=== PATIENT | female | born 1950 | race American Indian/Alaskan Native ===

== ENCOUNTER 2017-11-06 16:29 | Inpatient (IN) | payer MEDICARE ==
[2017-11-06 17:03] VITALS: BMI 32.1
--- NOTE | 2017-11-06 18:00 | CP.PCM.HP ---
History of Present Illness - History of Present Illness History of Present Illness: 67 yo female with history of DM2, HTN, CAD and OA had left TKR on 11/02/2017 at [facility] after failing conservative management. She was transferred to [facility] for PT in TCU. Present on Admission - Present on Admission Any Indicators Present on Admission: No History of DVT/PE: No History of Uncontrolled Diabetes: No Urinary Catheter: No Decubitus Ulcer Present: No Review of Systems - Review of Systems All systems: reviewed and no additional remarkable complaints except (aside from those mentioned above, 14 point system review were negative by me) Past Patient History - Tetanus Immunizations Tetanus Immunization: Unknown - Past Medical History & Family History Past Medical History?: Yes - Past Social History Smoking Status: Current Some Days Smoker Alcohol: None Drugs: Denies Home Situation {Lives}: With Family - CARDIAC Hx Cardiac Disorders: Yes (CAD, CABGx2 2013) Hx Hypercholesterolemia: Yes Hx Hypertension: Yes - PULMONARY Hx Respiratory Disorders: No - NEUROLOGICAL Hx Neurological Disorder: No - HEENT Hx HEENT Problems: Yes Hx Cataracts: Yes - RENAL Hx Chronic Kidney Disease: No - ENDOCRINE/METABOLIC Hx Diabetes Mellitus Type 2: Yes - HEMATOLOGICAL/ONCOLOGICAL Hx Blood Disorders: No - INTEGUMENTARY Hx Dermatological Problems: No - MUSCULOSKELETAL/RHEUMATOLOGICAL Hx Arthritis: Yes Hx Degenerative Joint Disease: Yes Hx Osteoarthritis: Yes - GASTROINTESTINAL Hx Gastrointestinal Disorders: Yes Hx Hemorrhoids: Yes - GENITOURINARY/GYNECOLOGICAL Hx Genitourinary Disorders: No - PSYCHIATRIC Hx Psychophysiologic Disorder: No Hx Substance Use: No - SURGICAL HISTORY Hx Surgeries: Yes Hx Cataract Extraction: Yes (BILAT.) Hx Coronary Artery Bypass Graft: Yes (X2) Hx Open Heart Surgery: Yes Hx Orthopedic Surgery: Yes (right TKR (05/11/2017)) Other/Comment: HX: LEFT KNEE CYST REMOVED. HX: RIGHT THIGH BOIL I & D - ANESTHESIA Hx Anesthesia: Yes Hx Anesthesia Reactions: No Hx Malignant Hyperthermia: No Meds Allergies/Adverse Reactions: Allergies Allergy/AdvReac Type Severity Reaction Status Date / Time No Known Allergies Allergy Verified 11/06/17 17:06 Physical Exam - Constitutional Appears: No Acute Distress - Head Exam Head Exam: ATRAUMATIC - Eye Exam Eye Exam: absent: Scleral icterus - ENT Exam ENT Exam: Mucous Membranes Moist - Neck Exam Neck exam: Negative for: Meningismus - Respiratory Exam Respiratory Exam: absent: Rales, Rhonchi, Wheezes, Respiratory Distress - Cardiovascular Exam Cardiovascular Exam: REGULAR RHYTHM, +S1, +S2 - GI/Abdominal Exam GI & Abdominal Exam: Soft. absent: Tenderness - Rectal Exam Rectal Exam: Deferred - Extremities Exam Extremities exam: Negative for: full ROM (post left TKR) - Neurological Exam Neurological exam: Alert, Oriented x3 - Psychiatric Exam Psychiatric exam: Normal Affect - Skin Skin Exam: Dry, Intact Assessment & Plan - Assessment and Plan (Free Text) Assessment: 67 yo female with history of DM2, HTN, CAD and OA had left TKR on 11/02/2017 at [facility] after failing conservative management. She was transferred to [facility] for PT in TCU. 1. Post Left TKR 4th POD refer to PT/OT for management 2. DM2 BS relatively controlled continue Levemir 15 units SC HS continue Metformin 1000mg PO BID 3. HTN BP stable continue Metoprolol 4. CAD continue ASA, Metoprolol and statin patient need Plavix or ASA unless there is some contra indication 5. DVT prophylaxis Lovenox 40mg SC daily
[2017-11-06] MEDS ORDERED: Oxycodone/Acetaminophen 5/325 mg Tab PO PRN (18:27)
[2017-11-06] MEDS: Insulin Detemir 100 Units/ml Inj SC SCH (21:46)
[2017-11-07 06:47] LABS: BASO % 0.3 % (0.0-2.0); EOS # 0.3 K/uL (0.0-0.7); HEMOGLOBIN 9.1 g/dL (12.0-16.0); LYMPH # 2.8 K/uL (1.0-4.3); LYMPH % 35.9 % (20.0-40.0); MEAN CELL VOLUME 96.3 fl (81.0-99.0); MEAN CORPUSCULAR HGB CONC 33.2 g/dL (33.0-37.0); MEAN PLATELET VOLUME 10.4 fl (7.2-11.7); MONO # 1.1 K/uL (0.0-0.8); MONO % 14.5 % (0.0-10.0); NEUT # 3.5 K/uL (1.8-7.0); NEUT % 45.3 % (50.0-75.0); NRBC % 0.1 % (0.0-0.0); RBC 2.83 Mil/uL (3.80-5.20); RED CELL DISTRIBUTION WIDTH 13.2 % (11.5-14.5); WHITE BLOOD COUNT 7.7 K/uL (4.8-10.8)
[2017-11-07 07:09] LABS: BLOOD UREA NITROGEN 11 mg/dl (7-17); CALCIUM 9.3 mg/dL (8.4-10.2); GFR AFRICAN-AMERICAN > 60; GFR NON-AFRICAN AMERICAN > 60
[2017-11-07] MEDS: Multivitamin With Minerals Tab PO SCH (08:08)
[2017-11-07] MEDS: Enoxaparin 40 mg Syringe SC SCH (08:09)
[2017-11-07] MEDS: Pantoprazole 40 mg EC Tab PO SCH (08:09)
[2017-11-07] MEDS ORDERED: Enoxaparin 40 mg Syringe SC SCH (09:00)
[2017-11-07] MEDS ORDERED: Metoprolol Succinate 50 mg XL Tab PO SCH (09:00)
--- NOTE | 2017-11-07 12:49 | CP.PCM.CON ---
History of Present Illness - History of Present Illness History of Present Illness: 67 year old patinet with gait difficulty, with left total knee replacement, with history of DM, HTN OA admitted to TCU Review of Systems - Musculoskeletal Musculoskeletal: Abnormal Gait, Limited Range of Motion, Muscle Weakness Past Patient History - Tetanus Immunizations Tetanus Immunization: Unknown - Past Medical History & Family History Past Medical History?: Yes - Past Social History Smoking Status: Current Some Days Smoker Alcohol: None Drugs: Denies Home Situation {Lives}: With Family - CARDIAC Hx Cardiac Disorders: Yes (CAD, CABGx2 2013) Hx Hypercholesterolemia: Yes Hx Hypertension: Yes - PULMONARY Hx Respiratory Disorders: No - NEUROLOGICAL Hx Neurological Disorder: No - HEENT Hx HEENT Problems: Yes Hx Cataracts: Yes - RENAL Hx Chronic Kidney Disease: No - ENDOCRINE/METABOLIC Hx Diabetes Mellitus Type 2: Yes - HEMATOLOGICAL/ONCOLOGICAL Hx Blood Disorders: No - INTEGUMENTARY Hx Dermatological Problems: No - MUSCULOSKELETAL/RHEUMATOLOGICAL Hx Arthritis: Yes Hx Degenerative Joint Disease: Yes Hx Osteoarthritis: Yes - GASTROINTESTINAL Hx Gastrointestinal Disorders: Yes Hx Hemorrhoids: Yes - GENITOURINARY/GYNECOLOGICAL Hx Genitourinary Disorders: No - PSYCHIATRIC Hx Psychophysiologic Disorder: No Hx Substance Use: No - SURGICAL HISTORY Hx Surgeries: Yes Hx Cataract Extraction: Yes (BILAT.) Hx Coronary Artery Bypass Graft: Yes (X2) Hx Open Heart Surgery: Yes Hx Orthopedic Surgery: Yes (right TKR (05/11/2017)) Other/Comment: HX: LEFT KNEE CYST REMOVED. HX: RIGHT THIGH BOIL I & D - ANESTHESIA Hx Anesthesia: Yes Hx Anesthesia Reactions: No Hx Malignant Hyperthermia: No Meds Allergies/Adverse Reactions: Allergies Allergy/AdvReac Type Severity Reaction Status Date / Time No Known Allergies Allergy Verified 11/06/17 17:06 - Medications Medications: Current Medications Acetaminophen (Tylenol 325mg Tab) 650 mg PO Q4 PRN PRN Reason: Fever 101 degrees fahrenheit Aspirin (Aspirin Chewable) 81 mg PO DAILY [facility] Last Admin: 11/07/17 08:08 Dose: 81 mg Atorvastatin Calcium (Lipitor) 20 mg PO HS [facility] Docusate Sodium (Colace) 100 mg PO BID [facility] Last Admin: 11/07/17 08:07 Dose: 100 mg Enoxaparin Sodium (Lovenox) 40 mg SC DAILY [facility] PRN Reason: Protocol Last Admin: 11/07/17 08:09 Dose: 40 mg Insulin Detemir (Levemir) 15 units SC HS [facility] Last Admin: 11/06/17 21:46 Dose: 15 u Ketorolac Tromethamine (Toradol) 30 mg IM Q6 PRN PRN Reason: Pain, severe (8-10) Last Admin: 11/07/17 09:03 Dose: 30 mg Lactulose (Enulose) 20 gm PO BID PRN PRN Reason: Constipation Metformin HCl (Glucophage) 1,000 mg PO BID [facility] Last Admin: 11/07/17 08:08 Dose: 1,000 mg Metoprolol Succinate (Toprol Xl) 50 mg PO BID@0900,2100 [facility] Last Admin: 11/07/17 08:08 Dose: 50 mg Multivitamins/Minerals (Therapeutic-M Tab) 1 tab PO DAILY [facility] Last Admin: 11/07/17 08:08 Dose: 1 tab Pantoprazole Sodium (Protonix Ec Tab) 40 mg PO DAILY [facility] Last Admin: 11/07/17 08:09 Dose: 40 mg Tramadol HCl (Ultram) 50 mg PO Q4 PRN PRN Reason: Pain, moderate (4-7) Last Admin: 11/06/17 20:19 Dose: 50 mg Physical Exam - Head Exam Head Exam: ATRAUMATIC, NORMAL INSPECTION, NORMOCEPHALIC - Eye Exam Eye Exam: EOMI, Normal appearance, PERRL - ENT Exam ENT Exam: Mucous Membranes Moist, Normal Exam - Neck Exam Neck exam: Positive for: Normal Inspection - Respiratory Exam Respiratory Exam: Clear to Auscultation Bilateral, NORMAL BREATHING PATTERN - Cardiovascular Exam Cardiovascular Exam: REGULAR RHYTHM - Rectal Exam Rectal Exam: NORMAL INSPECTION - Exam External exam: NORMAL EXTERNAL EXAM - Extremities Exam Extremities exam: Positive for: normal inspection Additional comments: left leg weakness - Back Exam Back exam: NORMAL INSPECTION - Neurological Exam Neurological exam: Alert, CN II-XII Intact - Psychiatric Exam Psychiatric exam: Normal Affect, Normal Mood - Skin Skin Exam: Dry, Intact Results - Vital Signs Recent Vital Signs: Last Vital Signs Temp 98.2 F 11/07/17 08:45 Pulse 91 H 11/07/17 08:45 Resp 20 11/07/17 08:45 BP 134/74 11/07/17 08:45 Pulse Ox 96 11/07/17 08:45 - Labs Result Diagrams: 11/07/17 05:50 11/07/17 05:50 Labs: Laboratory Results - last 24 hr 11/06/17 11/07/17 11/07/17 21:14 05:48 05:50 WBC 7.7 RBC 2.83 L Hgb 9.1 L Hct 27.3 L MCV 96.3 MCH 32.0 H MCHC 33.2 RDW 13.2 Plt Count 190 MPV 10.4 Neut % (Auto) 45.3 L Lymph % (Auto) 35.9 Osborne % (Auto) 14.5 H Eos % (Auto) 4.0 Baso % (Auto) 0.3 Neut # (Auto) 3.5 Lymph # (Auto) 2.8 Osborne # (Auto) 1.1 H Eos # (Auto) 0.3 Baso # (Auto) 0.0 Sodium Potassium Chloride Carbon Dioxide Anion Gap BUN Creatinine Est GFR ( Amer) Est GFR (Non-Af Amer) POC Glucose (mg/dL) 186 H 134 H Random Glucose Calcium 11/07/17 11/07/17 05:50 10:56 WBC RBC Hgb Hct MCV MCH MCHC RDW Plt Count MPV Neut % (Auto) Lymph % (Auto) Osborne % (Auto) Eos % (Auto) Baso % (Auto) Neut # (Auto) Lymph # (Auto) Osborne # (Auto) Eos # (Auto) Baso # (Auto) Sodium 138 Potassium 3.8 Chloride 94 L Carbon Dioxide 29 Anion Gap 19 BUN 11 Creatinine 0.6 L Est GFR ( Amer) > 60 Est GFR (Non-Af Amer) > 60 POC Glucose (mg/dL) 164 H Random Glucose 128 H Calcium 9.3 Assessment & Plan (1) CAD (coronary artery disease) Status: Acute (2) HTN (hypertension) Status: Acute (3) Primary osteoarthritis of left knee Assessment and Plan: left knee replacement, plan for range of motion, strenghtening, transfers and gait training Status: Acute (4) Primary osteoarthritis of right knee Status: Acute
--- NOTE | 2017-11-07 12:53 | CP.PCM.PN ---
Subjective - Date & Time of Evaluation Date of Evaluation: 11/07/17 Time of Evaluation: 12:00 - Subjective Subjective: no acute complaints of knee pain Objective - Vital Signs/Intake and Output Vital Signs (last 24 hours): Temp Pulse Resp BP Pulse Ox 98.2 F 91 H 20 134/74 96 11/07/17 08:45 11/07/17 08:45 11/07/17 08:45 11/07/17 08:45 11/07/17 08:45 - Medications Medications: Current Medications Acetaminophen (Tylenol 325mg Tab) 650 mg PO Q4 PRN PRN Reason: Fever 101 degrees fahrenheit Aspirin (Aspirin Chewable) 81 mg PO DAILY [facility] Last Admin: 11/07/17 08:08 Dose: 81 mg Atorvastatin Calcium (Lipitor) 20 mg PO HS [facility] Docusate Sodium (Colace) 100 mg PO BID [facility] Last Admin: 11/07/17 08:07 Dose: 100 mg Enoxaparin Sodium (Lovenox) 40 mg SC DAILY [facility] PRN Reason: Protocol Last Admin: 11/07/17 08:09 Dose: 40 mg Insulin Detemir (Levemir) 15 units SC [facility] Last Admin: 11/06/17 21:46 Dose: 15 u Ketorolac Tromethamine (Toradol) 30 mg IM Q6 PRN PRN Reason: Pain, severe (8-10) Last Admin: 11/07/17 09:03 Dose: 30 mg Lactulose (Enulose) 20 gm PO BID PRN PRN Reason: Constipation Metformin HCl (Glucophage) 1,000 mg PO BID [facility] Last Admin: 11/07/17 08:08 Dose: 1,000 mg Metoprolol Succinate (Toprol Xl) 50 mg PO BID@0900,2100 [facility] Last Admin: 11/07/17 08:08 Dose: 50 mg Multivitamins/Minerals (Therapeutic-M Tab) 1 tab PO DAILY [facility] Last Admin: 11/07/17 08:08 Dose: 1 tab Pantoprazole Sodium (Protonix Ec Tab) 40 mg PO DAILY [facility] Last Admin: 11/07/17 08:09 Dose: 40 mg Tramadol HCl (Ultram) 50 mg PO Q4 PRN PRN Reason: Pain, moderate (4-7) Last Admin: 11/06/17 20:19 Dose: 50 mg - Labs Labs: 11/07/17 05:50 11/07/17 05:50 - Head Exam Head Exam: ATRAUMATIC, NORMAL INSPECTION, NORMOCEPHALIC - Eye Exam Eye Exam: EOMI, Normal appearance, PERRL Pupil Exam: NORMAL ACCOMODATION, PERRL - ENT Exam ENT Exam: Mucous Membranes Moist, Normal Exam - Neck Exam Neck Exam: Full ROM, Normal Inspection. absent: Lymphadenopathy - Respiratory Exam Respiratory Exam: Clear to Ausculation Bilateral, NORMAL BREATHING PATTERN - Cardiovascular Exam Cardiovascular Exam: REGULAR RHYTHM, +S1, +S2. absent: Murmur - GI/Abdominal Exam GI & Abdominal Exam: Soft, Normal Bowel Sounds. absent: Tenderness - Rectal Exam Rectal Exam: NORMAL INSPECTION - Exam External exam: NORMAL EXTERNAL EXAM - Extremities Exam Extremities Exam: Full ROM, Normal Capillary Refill, Normal Inspection. absent : Joint Swelling, Pedal Edema - Back Exam Back Exam: NORMAL INSPECTION - Neurological Exam Neurological Exam: Alert, Awake Neuro motor strength exam: Left Upper Extremity: 4, Right Upper Extremity: 4, Left Lower Extremity: 3, Right Lower Extremity: 4 - Psychiatric Exam Psychiatric exam: Normal Affect, Normal Mood - Skin Skin Exam: Dry, Intact Assessment and Plan (1) CAD (coronary artery disease) Status: Acute (2) HTN (hypertension) Status: Acute (3) Primary osteoarthritis of left knee Assessment & Plan: left knee replacement, quad strengthening transfers and gait training monitor skin and pain Status: Acute (4) Primary osteoarthritis of right knee Status: Acute
[2017-11-07] MEDS: Insulin Detemir 100 Units/ml Inj SC SCH (21:30)
[2017-11-08] MEDS: Multivitamin With Minerals Tab PO SCH (08:08)
[2017-11-08] MEDS: Pantoprazole 40 mg EC Tab PO SCH (08:09)
[2017-11-08] MEDS: Metoprolol Succinate 50 mg XL Tab PO SCH (08:09)
[2017-11-08] MEDS: Enoxaparin 40 mg Syringe SC SCH (08:10)
--- NOTE | 2017-11-08 12:43 | CP.PCM.PN ---
Subjective - Date & Time of Evaluation Date of Evaluation: 11/08/17 Time of Evaluation: 10:00 - Subjective Subjective: Patient seen and examined. Tolerating therapy. Pain controlled with Tramadol. Objective - Vital Signs/Intake and Output Vital Signs (last 24 hours): Temp Pulse Resp BP Pulse Ox 97.8 F 89 20 130/74 100 11/08/17 07:58 11/08/17 07:58 11/08/17 07:58 11/08/17 08:09 11/08/17 07:58 - Medications Medications: Current Medications Acetaminophen (Tylenol 325mg Tab) 650 mg PO Q4 PRN PRN Reason: Fever 101 degrees fahrenheit Aspirin (Aspirin Chewable) 81 mg PO DAILY [facility] Last Admin: 11/08/17 08:09 Dose: 81 mg Atorvastatin Calcium (Lipitor) 20 mg PO HS [facility] Last Admin: 11/07/17 21:31 Dose: 20 mg Docusate Sodium (Colace) 100 mg PO BID [facility] Last Admin: 11/08/17 08:08 Dose: 100 mg Enoxaparin Sodium (Lovenox) 40 mg SC DAILY [facility] PRN Reason: Protocol Last Admin: 11/08/17 08:10 Dose: 40 mg Insulin Detemir (Levemir) 15 units SC HS [facility] Last Admin: 11/07/17 21:30 Dose: 15 u Ketorolac Tromethamine (Toradol) 30 mg IM Q6 PRN PRN Reason: Pain, severe (8-10) Last Admin: 11/07/17 09:03 Dose: 30 mg Lactulose (Enulose) 20 gm PO BID PRN PRN Reason: Constipation Metformin HCl (Glucophage) 1,000 mg PO BID [facility] Last Admin: 11/08/17 08:08 Dose: 1,000 mg Metoprolol Succinate (Toprol Xl) 50 mg PO DAILY [facility] Last Admin: 11/08/17 08:09 Dose: 50 mg Multivitamins/Minerals (Therapeutic-M Tab) 1 tab PO DAILY [facility] Last Admin: 11/08/17 08:08 Dose: 1 tab Pantoprazole Sodium (Protonix Ec Tab) 40 mg PO DAILY [facility] Last Admin: 11/08/17 08:09 Dose: 40 mg Tramadol HCl (Ultram) 50 mg PO Q4 PRN PRN Reason: Pain, moderate (4-7) Last Admin: 11/08/17 08:29 Dose: 50 mg - Labs Labs: 11/07/17 05:50 11/07/17 05:50 - Constitutional Appears: No Acute Distress - Head Exam Head Exam: ATRAUMATIC - Eye Exam Eye Exam: absent: Scleral icterus - ENT Exam ENT Exam: Mucous Membranes Moist - Neck Exam Neck Exam: absent: Meningismus - Respiratory Exam Respiratory Exam: absent: Rales, Rhonchi, Wheezes, Respiratory Distress - Cardiovascular Exam Cardiovascular Exam: REGULAR RHYTHM, +S1, +S2 - GI/Abdominal Exam GI & Abdominal Exam: Soft. absent: Tenderness - Rectal Exam Rectal Exam: Deferred - Extremities Exam Extremities Exam: absent: Full ROM (left knee post surgery) - Neurological Exam Neurological Exam: Alert, Oriented x3 - Psychiatric Exam Psychiatric exam: Normal Affect - Skin Skin Exam: Dry, Intact Assessment and Plan - Assessment and Plan (Free Text) Assessment: 67 yo female with history of DM2, HTN, CAD and OA had left TKR on 11/02/2017 at [facility] after failing conservative management. She was transferred to [facility] TCU for therapy. 1. Post Left TKR 6th POD tolerating PT/OT pain manageable with Tramadol 2. DM2 BS relatively controlled accuchek ACHS continue Levemir 15 units SC HS continue Metformin 1000mg PO BID 3. HTN BP stable continue Metoprolol Succinate 50mg PO daily 4. CAD continue ASA, BB and statin 5. DVT prophylaxis Lovenox 40mg SC daily
--- NOTE | 2017-11-08 14:33 | CP.PCM.PN ---
Subjective - Date & Time of Evaluation Date of Evaluation: 11/08/17 Time of Evaluation: 14:31 - Subjective Subjective: Patient was seen and examined OOB to chair comfortable working with PT. She is able to ambulate with walker with no difficulties. She has no complaints of pain. Tolerating diet. No new complaints. Objective - Vital Signs/Intake and Output Vital Signs (last 24 hours): Temp Pulse Resp BP Pulse Ox 97.8 F 89 20 130/74 100 11/08/17 07:58 11/08/17 07:58 11/08/17 07:58 11/08/17 08:09 11/08/17 07:58 - Medications Medications: Current Medications Acetaminophen (Tylenol 325mg Tab) 650 mg PO Q4 PRN PRN Reason: Fever 101 degrees fahrenheit Aspirin (Aspirin Chewable) 81 mg PO DAILY [facility] Last Admin: 11/08/17 08:09 Dose: 81 mg Atorvastatin Calcium (Lipitor) 20 mg PO HS [facility] Last Admin: 11/07/17 21:31 Dose: 20 mg Docusate Sodium (Colace) 100 mg PO BID [facility] Last Admin: 11/08/17 08:08 Dose: 100 mg Enoxaparin Sodium (Lovenox) 40 mg SC DAILY [facility] PRN Reason: Protocol Last Admin: 11/08/17 08:10 Dose: 40 mg Insulin Detemir (Levemir) 15 units SC [facility] Last Admin: 11/07/17 21:30 Dose: 15 u Ketorolac Tromethamine (Toradol) 30 mg IM Q6 PRN PRN Reason: Pain, severe (8-10) Last Admin: 11/07/17 09:03 Dose: 30 mg Lactulose (Enulose) 20 gm PO BID PRN PRN Reason: Constipation Metformin HCl (Glucophage) 1,000 mg PO BID [facility] Last Admin: 11/08/17 08:08 Dose: 1,000 mg Metoprolol Succinate (Toprol Xl) 50 mg PO DAILY [facility] Last Admin: 11/08/17 08:09 Dose: 50 mg Multivitamins/Minerals (Therapeutic-M Tab) 1 tab PO DAILY [facility] Last Admin: 11/08/17 08:08 Dose: 1 tab Pantoprazole Sodium (Protonix Ec Tab) 40 mg PO DAILY [facility] Last Admin: 11/08/17 08:09 Dose: 40 mg Tramadol HCl (Ultram) 50 mg PO Q4 PRN PRN Reason: Pain, moderate (4-7) Last Admin: 11/08/17 08:29 Dose: 50 mg - Labs Labs: 11/07/17 05:50 11/07/17 05:50 - Back Exam Additional comments: L knee: Dressing clean, dry and intact. No tenderness. Minimal swelling. ROM 0- 75. Sensation intact SP/DP/TN. Motor intact EHL/FHL/TA/Gastroc/Q/HS/hip flex. Pedal pulses intact. compartment soft/NT b/l Assessment and Plan (1) Primary osteoarthritis of left knee Assessment & Plan: Patient is POD#7 from left TKA doing well. -PT/OT strength training, ambulation training, stairs training. -CPM as per order -encourage OOB -will d/w attending Status: Acute
[2017-11-08] MEDS: Insulin Detemir 100 Units/ml Inj SC SCH (21:13)
[2017-11-09] MEDS: Metoprolol Succinate 50 mg XL Tab PO SCH (08:58)
[2017-11-09] MEDS: Pantoprazole 40 mg EC Tab PO SCH (08:58)
[2017-11-09] MEDS: Multivitamin With Minerals Tab PO SCH (08:58)
[2017-11-09] MEDS: Enoxaparin 40 mg Syringe SC SCH (08:59)
[2017-11-09] MEDS: Cholecalciferol 1,000 INTLU TAB PO SCH (14:24)
[2017-11-09] MEDS: Insulin Detemir 100 Units/ml Inj SC SCH (21:09)
[2017-11-10] MEDS: Enoxaparin 40 mg Syringe SC SCH (08:35)
[2017-11-10] MEDS: Metoprolol Succinate 50 mg XL Tab PO SCH (08:36)
[2017-11-10] MEDS: Multivitamin With Minerals Tab PO SCH (08:37)
[2017-11-10] MEDS: Cholecalciferol 1,000 INTLU TAB PO SCH (08:37)
[2017-11-10] MEDS: Pantoprazole 40 mg EC Tab PO SCH (08:37)
[2017-11-10] MEDS: Insulin Detemir 100 Units/ml Inj SC SCH (21:12)
[2017-11-11] MEDS: Metoprolol Succinate 50 mg XL Tab PO SCH (08:16)
[2017-11-11] MEDS: Enoxaparin 40 mg Syringe SC SCH (08:17)
[2017-11-11] MEDS: Cholecalciferol 1,000 INTLU TAB PO SCH (08:17)
[2017-11-11] MEDS: Pantoprazole 40 mg EC Tab PO SCH (08:17)
[2017-11-11] MEDS: Multivitamin With Minerals Tab PO SCH (08:17)
[2017-11-11] MEDS: Insulin Detemir 100 Units/ml Inj SC SCH (22:01)
[2017-11-12] MEDS: Metoprolol Succinate 50 mg XL Tab PO SCH (08:17)
[2017-11-12] MEDS: Enoxaparin 40 mg Syringe SC SCH (08:18)
[2017-11-12] MEDS: Cholecalciferol 1,000 INTLU TAB PO SCH (08:18)
[2017-11-12] MEDS: Multivitamin With Minerals Tab PO SCH (08:18)
[2017-11-12] MEDS: Pantoprazole 40 mg EC Tab PO SCH (08:18)
--- NOTE | 2017-11-12 10:23 | CP.PCM.PN ---
Subjective - Date & Time of Evaluation Date of Evaluation: 11/12/17 Time of Evaluation: 10:21 - Subjective Subjective: Patient seen and examined OOB to chair comfortable. No complaints of pain. Returned from today's session of PT without difficulties. No new complaints. Objective - Vital Signs/Intake and Output Vital Signs (last 24 hours): Temp Pulse Resp BP Pulse Ox 97.9 F 75 20 117/70 99 11/12/17 07:38 11/12/17 08:17 11/12/17 07:38 11/12/17 08:17 11/12/17 07:38 - Medications Medications: Current Medications Acetaminophen (Tylenol 325mg Tab) 650 mg PO Q4 PRN PRN Reason: Fever 101 degrees fahrenheit Aspirin (Aspirin Chewable) 81 mg PO DAILY [facility] Last Admin: 11/12/17 08:18 Dose: 81 mg Atorvastatin Calcium (Lipitor) 20 mg PO HS [facility] Last Admin: 11/11/17 22:02 Dose: Not Given Cholecalciferol (Vitamin D) 2,000 intlu PO DAILY [facility] Last Admin: 11/12/17 08:18 Dose: 2,000 intlu Docusate Sodium (Colace) 100 mg PO BID [facility] Last Admin: 11/12/17 08:16 Dose: Not Given Enoxaparin Sodium (Lovenox) 40 mg SC DAILY [facility] PRN Reason: Protocol Last Admin: 11/12/17 08:18 Dose: 40 mg Insulin Detemir (Levemir) 15 units SC [facility] Last Admin: 11/11/17 22:01 Dose: 15 u Ketorolac Tromethamine (Toradol) 30 mg IM Q6 PRN PRN Reason: Pain, severe (8-10) Last Admin: 11/11/17 16:27 Dose: 30 mg Lactulose (Enulose) 20 gm PO BID PRN PRN Reason: Constipation Metformin HCl (Glucophage) 1,000 mg PO BID [facility] Last Admin: 11/12/17 08:18 Dose: 1,000 mg Metoprolol Succinate (Toprol Xl) 50 mg PO DAILY [facility] Last Admin: 11/12/17 08:17 Dose: 50 mg Multivitamins/Minerals (Therapeutic-M Tab) 1 tab PO DAILY [facility] Last Admin: 11/12/17 08:18 Dose: 1 tab Pantoprazole Sodium (Protonix Ec Tab) 40 mg PO DAILY [facility] Last Admin: 03/19/18 08:18 Dose: 40 mg Tramadol HCl (Ultram) 50 mg PO Q4 PRN PRN Reason: Pain, moderate (4-7) Last Admin: 11/12/17 04:11 Dose: 50 mg - Labs Labs: 11/07/17 05:50 11/07/17 05:50 - Extremities Exam Additional comments: L knee: Dressing clean, dry and intact. Dressings removed revealing wound clean dry and intact with audrey. No tenderness. Minimal swelling. ROM 0-80. Sensation intact SP/DP/TN. Motor intact EHL/FHL/TA/Gastroc/Q/HS/hip flex. Pedal pulses intact. compartment soft/NT b/l Assessment and Plan (1) Primary osteoarthritis of left knee Assessment & Plan: Patient is POD#11 from left TKA doing well. -Dressings changed this AM -PT/OT -CPM as per order -will d/w attending Status: Acute
[2017-11-12] MEDS: Insulin Detemir 100 Units/ml Inj SC SCH (21:26)
[2017-11-13] MEDS: Enoxaparin 40 mg Syringe SC SCH (08:33)
[2017-11-13] MEDS: Metoprolol Succinate 50 mg XL Tab PO SCH (08:34)
[2017-11-13] MEDS: Pantoprazole 40 mg EC Tab PO SCH (08:34)
[2017-11-13] MEDS: Multivitamin With Minerals Tab PO SCH (08:34)
[2017-11-13] MEDS: Cholecalciferol 1,000 INTLU TAB PO SCH (08:35)
[2017-11-13 17:28] VITALS: RESP 20
--- NOTE | 2017-11-13 18:03 | CP.PCM.PN ---
Subjective - Date & Time of Evaluation Date of Evaluation: 11/13/17 Time of Evaluation: 10:00 - Subjective Subjective: Patient seen and examined. Denied any complaint. Objective - Vital Signs/Intake and Output Vital Signs (last 24 hours): Temp Pulse Resp BP Pulse Ox 97.2 F L 91 H 20 126/77 98 11/13/17 17:28 11/13/17 17:28 11/13/17 17:28 11/13/17 17:28 11/13/17 17:28 - Medications Medications: Current Medications Acetaminophen (Tylenol 325mg Tab) 650 mg PO Q4 PRN PRN Reason: Fever 101 degrees fahrenheit Aspirin (Aspirin Chewable) 81 mg PO DAILY [facility] Last Admin: 11/13/17 08:35 Dose: 81 mg Atorvastatin Calcium (Lipitor) 20 mg PO HS [facility] Last Admin: 11/12/17 21:24 Dose: Not Given Cholecalciferol (Vitamin D) 2,000 intlu PO DAILY [facility] Last Admin: 11/13/17 08:35 Dose: 2,000 intlu Docusate Sodium (Colace) 100 mg PO BID [facility] Last Admin: 11/13/17 16:55 Dose: Not Given Enoxaparin Sodium (Lovenox) 40 mg SC DAILY [facility] PRN Reason: Protocol Last Admin: 11/13/17 08:33 Dose: 40 mg Insulin Detemir (Levemir) 15 units SC [facility] Last Admin: 11/12/17 21:26 Dose: 15 u Ketorolac Tromethamine (Toradol) 30 mg IM Q6 PRN PRN Reason: Pain, severe (8-10) Last Admin: 11/12/17 18:35 Dose: 30 mg Lactulose (Enulose) 20 gm PO BID PRN PRN Reason: Constipation Metformin HCl (Glucophage) 1,000 mg PO BID [facility] Last Admin: 11/13/17 16:55 Dose: 1,000 mg Metoprolol Succinate (Toprol Xl) 50 mg PO DAILY [facility] Last Admin: 11/13/17 08:34 Dose: 50 mg Multivitamins/Minerals (Therapeutic-M Tab) 1 tab PO DAILY [facility] Last Admin: 11/13/17 08:34 Dose: 1 tab Pantoprazole Sodium (Protonix Ec Tab) 40 mg PO DAILY [facility] Last Admin: 11/13/17 08:34 Dose: 40 mg Tramadol HCl (Ultram) 50 mg PO Q4 PRN PRN Reason: Pain, moderate (4-7) Last Admin: 11/13/17 16:55 Dose: 50 mg - Labs Labs: 11/07/17 05:50 11/07/17 05:50 - Constitutional Appears: No Acute Distress - Head Exam Head Exam: ATRAUMATIC - Eye Exam Eye Exam: absent: Scleral icterus - ENT Exam ENT Exam: Mucous Membranes Moist - Neck Exam Neck Exam: absent: Meningismus - Cardiovascular Exam Cardiovascular Exam: REGULAR RHYTHM, +S1, +S2 - GI/Abdominal Exam GI & Abdominal Exam: Soft. absent: Tenderness - Rectal Exam Rectal Exam: Deferred - Neurological Exam Neurological Exam: Alert, Oriented x3 - Psychiatric Exam Psychiatric exam: Normal Affect - Skin Skin Exam: Dry, Intact Assessment and Plan - Assessment and Plan (Free Text) Assessment: 67 yo female with history of DM2, HTN, CAD and OA had left TKR on 11/02/2017 at [facility] after failing conservative management. She was transferred to [facility] for therapy. 1. Post Left TKR 11th POD pain tolerable continue PT/OT 2. DM2 BS controlled accuchek ACHS continue Levemir 15 units SC HS continue Metformin 1000mg PO BID 3. HTN BP stable continue Metoprolol Succinate 50mg PO daily 4. CAD continue ASA, BB and statin 5. DVT prophylaxis Lovenox 40mg SC daily
[2017-11-13] MEDS: Insulin Detemir 100 Units/ml Inj SC SCH (21:26)
[2017-11-14] MEDS: Enoxaparin 40 mg Syringe SC SCH (08:10)
[2017-11-14] MEDS: Pantoprazole 40 mg EC Tab PO SCH (08:10)
[2017-11-14] MEDS: Cholecalciferol 1,000 INTLU TAB PO SCH (08:10)
[2017-11-14] MEDS: Metoprolol Succinate 50 mg XL Tab PO SCH (08:11)
[2017-11-14] MEDS: Multivitamin With Minerals Tab PO SCH (08:11)
[2017-11-14] MEDS: Insulin Detemir 100 Units/ml Inj SC SCH (21:15)
[2017-11-15 07:44] VITALS: BP 123/64; PULSE 88; TEMP 97.9; O2SAT 94
--- NOTE | 2017-11-15 08:19 | CP.PCM.DIS ---
Provider - Provider Date of Admission: 11/06/17 17:07 Attending physician: Idris Arizmendi MD Primary care physician: Dr Salvador Time Spent in preparation of Discharge (in minutes): 25 Diagnosis - Discharge Diagnosis (1) Primary osteoarthritis of left knee Status: Chronic (2) S/P total knee replacement Status: Acute (3) CAD (coronary artery disease) Status: Chronic (4) HTN (hypertension) Status: Chronic (5) DM type 2 (diabetes mellitus, type 2) Status: Chronic (6) Postoperative anemia due to acute blood loss Status: Acute Hospital Course - Lab Results Lab Results: Most Recent Lab Values WBC 7.7 K/uL (4.8-10.8) 11/07/17 05:50 RBC 2.83 Mil/uL (3.80-5.20) L 11/07/17 05:50 Hgb 9.1 g/dL (12.0-16.0) L 11/07/17 05:50 Hct 27.3 % (34.0-47.0) L 11/07/17 05:50 MCV 96.3 fl (81.0-99.0) 11/07/17 05:50 MCH 32.0 pg (27.0-31.0) H 11/07/17 05:50 MCHC 33.2 g/dL (33.0-37.0) 11/07/17 05:50 RDW 13.2 % (11.5-14.5) 11/07/17 05:50 Plt Count 190 K/uL (130-400) 11/07/17 05:50 MPV 10.4 fl (7.2-11.7) 11/07/17 05:50 Neut % (Auto) 45.3 % (50.0-75.0) L 11/07/17 05:50 Lymph % (Auto) 35.9 % (20.0-40.0) 11/07/17 05:50 [place] % (Auto) 14.5 % (0.0-10.0) H 11/07/17 05:50 Eos % (Auto) 4.0 % (0.0-4.0) 11/07/17 05:50 Baso % (Auto) 0.3 % (0.0-2.0) 11/07/17 05:50 Neut # (Auto) 3.5 K/uL (1.8-7.0) 11/07/17 05:50 Lymph # (Auto) 2.8 K/uL (1.0-4.3) 11/07/17 05:50 [place] # (Auto) 1.1 K/uL (0.0-0.8) H 11/07/17 05:50 Eos # (Auto) 0.3 K/uL (0.0-0.7) 11/07/17 05:50 Baso # (Auto) 0.0 K/uL (0.0-0.2) 11/07/17 05:50 Sodium 138 mmol/l (132-148) 11/07/17 05:50 Potassium 3.8 MMOL/L (3.6-5.0) 11/07/17 05:50 Chloride 94 mmol/L (98-107) L 11/07/17 05:50 Carbon Dioxide 29 mmol/L (22-30) 11/07/17 05:50 Anion Gap 19 (10-20) 11/07/17 05:50 BUN 11 mg/dl (7-17) 11/07/17 05:50 Creatinine 0.6 mg/dl (0.7-1.2) L 11/07/17 05:50 Est GFR ( Amer) > 60 11/07/17 05:50 Est GFR (Non-Af Amer) > 60 11/07/17 05:50 POC Glucose (mg/dL) 126 mg/dL (65-110) H 11/14/17 20:22 Random Glucose 128 mg/dL (65-105) H 11/07/17 05:50 Calcium 9.3 mg/dL (8.4-10.2) 11/07/17 05:50 25-OH Vitamin D Total 18.4 NG/ML (30.0-100.0) L 11/09/17 06:35 - Hospital Course Hospital Course: 67 yo female with history of DM2, HTN, CAD and OA had left TKR on 11/02/2017 at [facility] after failing conservative management. She was transferred to [facility]CU for Rehab. Pt participated with PT/OT and did well. Knee pain well controlled. 1. S/P Left TKR doing well completed PT/OT in TCU and deemed stable for d/c home Pain controlled Pt will cont with Outpt PT ff up with Dr Paula Lugo as scheduled on Sunday 2. DM2 BS controlled accuchek ACHS continue Levemir 15 units SC HS continue Metformin 1000mg PO BID 3. HTN BP stable continue Metoprolol Succinate 50mg PO daily 4. CAD continue ASA, BB and statin 5. Mild Post op Anemia , acute cont multivitamins pt stable and asymptomatic DVT prophylaxis Lovenox 40mg SC daily while in patient, refuses further home anticoag , advised pt to take ASA daily Discharge Exam - Head Exam Head Exam: ATRAUMATIC, NORMAL INSPECTION, NORMOCEPHALIC - Eye Exam Eye Exam: EOMI, Normal appearance Pupil Exam: NORMAL ACCOMODATION - ENT Exam ENT Exam: Mucous Membranes Moist, Normal External Ear Exam - Neck Exam Neck exam: Full Rom - Respiratory Exam Respiratory Exam: NORMAL BREATHING PATTERN. absent: Respiratory Distress - Cardiovascular Exam Cardiovascular Exam: REGULAR RHYTHM, +S1, +S2 - GI/Abdominal Exam GI & Abdominal Exam: Normal Bowel Sounds, Soft. absent: Tenderness - Extremities Exam Extremities exam: normal capillary refill, pedal pulses present Additional comments: no calf tenderness s/p left knee TKR - Back Exam Back exam: FULL ROM. absent: CVA tenderness (L), CVA tenderness (R) - Neurological Exam Neurological exam: Alert, CN II-XII Intact, Oriented x3, Reflexes Normal - Psychiatric Exam Psychiatric exam: Normal Affect, Normal Mood - Skin Skin Exam: Dry, Normal Color, Warm Discharge Plan - Discharge Medications Prescriptions: Cholecalciferol [Vitamin D 1000 IU] 2,000 intlu PO DAILY #100 tab - Follow Up Plan Condition: GOOD Disposition: HOME/ ROUTINE Additional Instructions: ff up with PMD syed ff up with Dr Lakhwinder Lugo Sunday Outpt PT Referrals: Pili West MD [Staff Provider] - Rick Salvador MD [Family Provider] -
[2017-11-15] MEDS: Cholecalciferol 1,000 INTLU TAB PO SCH (08:21)
[2017-11-15] MEDS: Metoprolol Succinate 50 mg XL Tab PO SCH (08:21)
[2017-11-15] MEDS: Pantoprazole 40 mg EC Tab PO SCH (08:22)
[2017-11-15] MEDS: Multivitamin With Minerals Tab PO SCH (08:25)
[2017-11-15] MEDS: Enoxaparin 40 mg Syringe SC SCH (08:27)
== END 2017-11-15 09:00 | disposition home or self-care (01) | DRG 560 ==
LOC: H.TCU 17:07
PROC: F07Z9FZ Gait Training/Functional Ambulation Treatment using Assistive, Adaptive, Supportive or Protective Equipment (ICD-10-PCS; principal; 2017-11-06)
PROC: F08Z4FZ Home Management Treatment using Assistive, Adaptive, Supportive or Protective Equipment (ICD-10-PCS; 2017-11-06)
PROC: F07L6FZ Therapeutic Exercise Treatment of Musculoskeletal System - Lower Back / Lower Extremity using Assistive, Adaptive, Supportive or Protective Equipment (ICD-10-PCS; 2017-11-06)
DX: Z47.1 Aftercare following joint replacement surgery (principal); Z96.652 Presence of left artificial knee joint; D62 Acute posthemorrhagic anemia; M17.12 Unilateral primary osteoarthritis, left knee; R26.2 Difficulty in walking, not elsewhere classified; I10 Essential (primary) hypertension; I25.10 Atherosclerotic heart disease of native coronary artery without angina pectoris; E11.9 Type 2 diabetes mellitus without complications; E78.00 Pure hypercholesterolemia, unspecified; F17.210 Nicotine dependence, cigarettes, uncomplicated; Z95.1 Presence of aortocoronary bypass graft; Z79.4 Long term (current) use of insulin